=== PATIENT | male | born 1980 | race Caucasian/White ===

== ENCOUNTER 2017-09-18 16:05 | Emergency (ER) | payer OTHER ==
[~2017-09-18] VITALS: Ht 170.2 cm; Wt 71.2 kg
[2017-09-18 16:10] VITALS: BP 129/83
[2017-09-18 17:33] LABS: APPEARANCE,URINE CLEAR; BILIRUBIN, URINE 1+ (NEGATIVE); GLUCOSE, URINE (UA) NEGATIVE (NEGATIVE); KETONES,URINE 1+ (NEGATIVE); LEUKOCYTE ESTERASE ,URINE 1+ (NEGATIVE); NITRITE,URINE NEGATIVE (NEGATIVE); PH,URINE 6 (4.5-8.0); PROTEIN,URINE 1+ (NEGATIVE); UROBILINOGEN,URINE 8 MG/DL (0.0-1.0)
[2017-09-18 17:40] LABS: COLOR,URINE AMBER
--- NOTE | 2017-09-18 18:08 | Emergency Room Report ---
History of Present Illness General Chief Complaint: Male Urogenital Problems Source: EMS Present Illness HPI 37-year-old male presents to the emergency department for evaluation of complaint of hematuria and difficulty urinating. Triage note reports patient had testicular pain however patient denies testicular pain at this time he states he has a history of hernia. Patient reports history of HIV, hep C and seizures. Patient reports he has had hematuria 2 days. Patient reports this has happened in the past. Patient denies recent unprotected intercourse he states that he was treated for Chlamydia in the last 3 months. He denies dysuria. Patient denies abdominal tenderness or testicular tenderness. He is not knowledgeable of his last CD4 count. He denies fevers, chills, edema, penile discharge, rashes, genital sores, tender swollen lymph nodes or joint pain. Denies CP, Palpitations, LOC, AMS, dizziness, Changes in Vision, Sensation , paresthesias, or a sudden severe headache. Allergies: Uncoded Allergies: TRAZADONE (Allergy, Unknown, 09/18/17) Patient History Past Medical History: see triage record Past Surgical History: none Pertinent Family History: none Reviewed Nursing Documentation: PMH: Agreed; PSxH: Agreed Nursing Documentation-PMH Past Medical History: No History, Except For Hx Hypertension: Yes History Of Psychiatric Problem: Yes - PTSD, substance abuse Hx Seizures: Yes - last seizure 1.5 months ago Review of Systems All Other Systems: negative except mentioned in HPI Physical Exam Vital Signs Date Time Temp Pulse Resp B/P (MAP) Pulse Ox O2 Delivery O2 Flow Rate FiO2 09/18/17 15:54 80 16 129/83 100 Room Air Sp02 EP Interpretation: reviewed, normal General Appearance: no apparent distress, alert, GCS 15, non-toxic Head: normocephalic, atraumatic ENT: hearing grossly normal, normal voice Neck: full range of motion Respiratory: chest non-tender, lungs clear, normal breath sounds, speaking full sentences Cardiovascular #1: regular rate, rhythm, no edema Gastrointestinal: normal bowel sounds, non tender, soft, non-distended, no guarding, no hernia Rectal: deferred Genitourinary: normal inspection, penis normal, scrotum normal, other - cremasteric reflex intact. no testicular pain or tenderness, no LAD, no lesions. no evidence of acute palpable hernia at this time. Musculoskeletal: back normal, gait/station normal, normal range of motion, non- tender Neurologic: alert, oriented x3, responsive, motor strength/tone normal, sensory intact, normal gait, speech normal, grossly normal Psychiatric: judgement/insight normal Skin: normal color, no rash, warm/dry, well hydrated Lymphatic: no adenopathy Medical Decision Making PA Attestation Dr. Coates is my supervising Physician whom patient management has been discussed with. Diagnostic Impression: Primary Impression: UTI (urinary tract infection) Qualified Codes: N30.01 - Acute cystitis with hematuria ER Course 37-year-old male presents to the emergency department for evaluation of complaint of hematuria and difficulty urinating. Triage note reports patient had testicular pain however patient denies testicular pain at this time he states he has a history of hernia. Patient reports history of HIV, hep C and seizures. Patient reports he has had hematuria 2 days. Patient reports this has happened in the past. Patient denies recent unprotected intercourse he states that he was treated for Chlamydia in the last 3 months. He denies dysuria. Patient denies abdominal tenderness or testicular tenderness. He is not knowledgeable of his last CD4 count. He denies fevers, chills, edema, penile discharge, rashes, genital sores, tender swollen lymph nodes or joint pain. Denies CP, Palpitations, LOC, AMS, dizziness, Changes in Vision, Sensation , paresthesias, or a sudden severe headache. Ddx considered but are not limited to UTi , Pyelo, STI, Stone, Cystitis, Spinal Chord injury. Vital signs: are WNL, pt. is afebrile --Padded [employer] Inspector Trimmer is EPIFANIO Lema H&PE are most consistent with- no evidence of acute palpable hernia at this time. Patient is able to provide urine sample and states that now he is able to urinate however he continues to have hematuria. ORDERS: - UA labs are attached - few bacteria with elevated leuks, and WBC's, some RBC' s indicating cystitis as well. -Patient refused ultrasound, he also refused urinary catheterization to determine presence of residual urine and amount. ED INTERVENTIONS: None required at this time. DISCHARGE: At this time pt. is stable for d/c to home. Will provide printed patient care instructions, and any necessary prescriptions. Care plan and follow up instructions have been discussed with the patient prior to discharge. Labs Test 09/18/17 16:35 Urine Color Cammie Urine Appearance Clear Urine pH 6 (4.5-8.0) Urine Specific Keeler 1.020 (1.005-1.035) Urine Protein 1+ (NEGATIVE) Urine Glucose (UA) Negative (NEGATIVE) Urine Ketones 1+ (NEGATIVE) Urine Occult Blood Negative (NEGATIVE) Urine Nitrite Negative (NEGATIVE) Urine Bilirubin 1+ (NEGATIVE) Urine Ictotest Negative Urine Urobilinogen 8 MG/DL (0.0-1.0) Urine Leukocyte Esterase 1+ (NEGATIVE) Urine RBC 0-2 /HPF (0 - 0) Urine WBC 0-2 /HPF (0 - 0) Urine Squamous Epithelial Cells None /LPF (NONE/OCC) Urine Bacteria Occasional /HPF (NONE) Urine Mucus Few /LPF (NONE/OCC) Last Vital Signs Date Time Temp Pulse Resp B/P (MAP) Pulse Ox O2 Delivery O2 Flow Rate FiO2 09/18/17 16:10 80 16 129/83 100 Room Air Disposition: D/C TO [facility] Condition: Stable Scripts Cephalexin* (KEFLEX*) 500 Mg Capsule 500 MG ORAL EVERY 12 HOURS for 7 Days, #14 CAP 0 Refills Prov: Nataly Corey 09/18/17 Departure Forms: [facility] Clearance Patient Instructions: Urinary Tract Infection Additional Instructions: Take medications as directed. Follow up with a UROLOGIST in 3-5 days, even if your symptoms have resolved. --Please review list of primary care clinics, if you do not already have a primary care provider who can provide you a urology referral. Return sooner to ED if new symptoms occur, or current symptoms become worse. - Please note that this Emergency Department Report was dictated using [employer] trading analyst technology software, occasionally this can lead to erroneous entry secondary to interpretation by the dictation equipment. Nataly Corey Sep 18, 2017 18:08
[2017-09-18] MEDS ORDERED: CEPHALEXIN500 MG ORAL (18:13)
[2017-09-18 18:18] VITALS: BP 129/83
== END 2017-09-18 18:20 | disposition home or self-care (01) ==
LOC: EDBD 16:05 → EMR 16:15
DX: N30.01 Acute cystitis with hematuria (principal); I10 Essential (primary) hypertension; F43.10 Post-traumatic stress disorder, unspecified; Z88.8 Allergy status to other drugs, medicaments and biological substances; B19.20 Unspecified viral hepatitis C without hepatic coma
CPT/HCPCS: 81003; 99283

== ENCOUNTER 2019-05-10 21:53 | Emergency (ER) | payer OTHER, SELFPAY ==
[~2019-05-10] VITALS: Ht 165.1 cm; Wt 59.0 kg
[~2019-05-10 21:53] MED LIST: CEPHALEXIN500 MG ORAL
--- NOTE | 2019-05-10 22:18 | Emergency Room Report ---
History of Present Illness General Chief Complaint: Medical Clearance Source: Patient, Medical Record Present Illness HPI This is a 39-year-old male with history of diabetes. He was brought in by police with chief complaint of medical clearance. He told police that he has a hernia and also has staph infection for which she take antibiotics. He also said that he has diabetes and take insulin. Because of that, he was brought into be evaluated. Here he refused to have anything done. He said he has no medical problem. He said he does not want blood work or exam done. He wants to leave. Allergies: Uncoded Allergies: TRAZADONE (Allergy, Unknown, 09/18/17) Patient History Past Medical History: see triage record, old chart reviewed, DM Past Surgical History: other Pertinent Family History: none Social History: Reports: smoking Immunizations: other Reviewed Nursing Documentation: PMH: Agreed; PSxH: Agreed Nursing Documentation-PMH Hx Hypertension: Yes Hx Seizures: Yes - last seizure 1.5 months ago Review of Systems Eye: Denies: eye pain, blurred vision ENT: Denies: ear pain, nose congestion, throat swelling Respiratory: Denies: cough, shortness of breath Cardiovascular: Denies: chest pain, palpitations Gastrointestinal: Denies: abdominal pain, diarrhea, nausea, vomiting Musculoskeletal: Denies: back pain, joint pain Skin: Denies: rash Neurological: Denies: headache, numbness Endocrine: Denies: increased thirst, increased urine Hematologic/Lymphatic: Denies: easy bruising All Other Systems: negative except mentioned in HPI Physical Exam Vital Signs Date Time Temp Pulse Resp B/P (MAP) Pulse Ox O2 Delivery O2 Flow Rate FiO2 05/10/19 22:02 18 vitals refused Sp02 EP Interpretation: reviewed, normal General Appearance: well appearing, no apparent distress, alert Head: normocephalic, atraumatic Eyes: bilateral eye PERRL, bilateral eye EOMI ENT: hearing grossly normal Neck: full range of motion, supple, no meningismus Respiratory: normal inspection Cardiovascular #1: normal inspection Musculoskeletal: back normal, gait/station normal, normal range of motion Neurologic: alert, oriented x3 Psychiatric: mood/affect normal Medical Decision Making Diagnostic Impression: Primary Impression: Examination, medicolegal reason ER Course Patient brought here for medical legal exam. He refused any exam. He is competent to make a decision. He has no emergent issue. Told patient would like to do an Accu-Chek but he refused. Will discharge to [facility]. Last Vital Signs Date Time Temp Pulse Resp B/P (MAP) Pulse Ox O2 Delivery O2 Flow Rate FiO2 05/10/19 22:02 18 Status: unchanged Disposition: D/C TO [facility] Condition: Stable Additional Instructions: Follow-up with your doctor in 7 days. Return if worse. Jose Leonardo MD May 10, 2019 22:18
== END 2019-05-10 22:20 ==
LOC: EMR 22:15
DX: Z04.89 Encounter for examination and observation for other specified reasons (principal); I10 Essential (primary) hypertension; G40.909 Epilepsy, unspecified, not intractable, without status epilepticus; F17.200 Nicotine dependence, unspecified, uncomplicated; Z88.8 Allergy status to other drugs, medicaments and biological substances
CPT/HCPCS: 99281